=== PATIENT | female | born 1945 | race Two or more races ===

== ENCOUNTER 2020-04-28 08:40 | Outpatient (CLI) | payer OTHER | END 2020-04-28 14:32 | disposition home or self-care (01) | LOC: OFIC 805 08:40 | PROVIDERS: ATTEND Otolaryngology Otology & Neurotology | DX: H90.A11 Conductive hearing loss, unilateral, right ear with restricted hearing on the contralateral side (principal); J33.8 Other polyp of sinus; J32.4 Chronic pansinusitis; H93.11 Tinnitus, right ear ==

== ENCOUNTER 2020-04-28 10:23 | Outpatient (CLI) | payer OTHER | END 2020-04-28 10:34 | disposition home or self-care (01) | LOC: TOM 10:23 | PROVIDERS: ATTEND Otolaryngology Otology & Neurotology | DX: H90.11 Conductive hearing loss, unilateral, right ear, with unrestricted hearing on the contralateral side (principal); J01.20 Acute ethmoidal sinusitis, unspecified ==

== ENCOUNTER 2020-06-30 05:50 | Day surgery (SDC) | payer OTHER ==
[~2020-06-30 05:50] MED LIST: ACID REDUCER20 M1 PO; ALLERGY RELIE15.8 ML NASAL; AZELASTINE137 MCG/0. NASAL; B12 ACTIVE1000 MCG PO; BREO ELLIPTA I1 EACH IH; DUPIXENT300 MG/2 M; OMEGA-31000 MG PO; PEPCID40 MG PO; SINGULAIR10 MG PO; VITAMIN C500 M6 PO; ZYRTEC10 M3 PO
[2020-06-30] MEDS ORDERED: CILOXAN5 ML OTIC (09:45)
[2020-06-30] MEDS ORDERED: ZOFRAN8 MG PO (09:45)
[2020-06-30] MEDS ORDERED: KEFLEX500 MG PO (09:45)
== END 2020-06-30 11:55 | disposition home or self-care (01) ==
LOC: CIR.AMB 05:50
PROVIDERS: ATTEND Otolaryngology Otology & Neurotology
DX: H90.A11 Conductive hearing loss, unilateral, right ear with restricted hearing on the contralateral side (principal); H90.11 Conductive hearing loss, unilateral, right ear, with unrestricted hearing on the contralateral side; H74.11 Adhesive right middle ear disease; Z20.828 Contact with and (suspected) exposure to other viral communicable diseases

== ENCOUNTER 2020-07-07 10:30 | Outpatient (CLI) | payer OTHER ==
[~2020-07-07 10:30] MED LIST changes: +CILOXAN5 ML OTIC; +KEFLEX500 MG PO; +ZOFRAN8 MG PO
== END 2020-07-07 15:26 | disposition home or self-care (01) ==
LOC: OFIC 805 10:30
PROVIDERS: ATTEND Otolaryngology Otology & Neurotology
DX: H90.A11 Conductive hearing loss, unilateral, right ear with restricted hearing on the contralateral side (principal); H60-H95 Diseases of the ear and mastoid process

== ENCOUNTER 2020-07-28 13:03 | Outpatient (CLI) | payer OTHER | END 2020-07-28 16:07 | disposition home or self-care (01) | LOC: OFIC 805 13:03 | PROVIDERS: ATTEND Otolaryngology Otology & Neurotology | DX: H90.A11 Conductive hearing loss, unilateral, right ear with restricted hearing on the contralateral side (principal); H60-H95 Diseases of the ear and mastoid process ==

== ENCOUNTER 2020-09-01 12:27 | Outpatient (CLI) | payer OTHER | END 2020-09-01 13:34 | disposition home or self-care (01) | LOC: OFIC 805 12:27 | PROVIDERS: ATTEND Otolaryngology Otology & Neurotology | DX: H60-H95 Diseases of the ear and mastoid process (principal); H93.11 Tinnitus, right ear; H90.A11 Conductive hearing loss, unilateral, right ear with restricted hearing on the contralateral side ==